=== PATIENT | female | born 1960 | race Hispanic/Latino ===

== ENCOUNTER 2023-11-05 14:50 | Emergency (ER) | payer SELFPAY ==
[2023-11-05] MEDS ORDERED: Acetaminophen 500 MG TAB ONE ×2 (15:19→15:30)
== END 2023-11-05 16:10 | disposition home or self-care (01) ==
LOC: CSHERS 14:50
DX: S52.501A Unspecified fracture of the lower end of right radius, initial encounter for closed fracture (principal); Z55.6 Problems related to health literacy; W18.30XA Fall on same level, unspecified, initial encounter
CPT/HCPCS: 29125